=== PATIENT | male | born 1995 | race Caucasian/White ===

== ENCOUNTER 2018-08-23 17:20 | Emergency (ER) | payer MEDICAID ==
[~2018-08-23] VITALS: Ht 180.3 cm; Wt 72.7 kg
[~2018-08-23 17:20] MED LIST: DIPH-423 PO; NO HOME MEDS; PRED50TA PO; RANI-366 PO
[2018-08-23 17:36] VITALS: BP 101/44
== END 2018-08-23 20:41 | disposition home or self-care (01) ==
LOC: ER 17:21
DX: S80.12XA Contusion of left lower leg, initial encounter (principal); S80.11XA Contusion of right lower leg, initial encounter; F20.9 Schizophrenia, unspecified; F32.9 Major depressive disorder, single episode, unspecified; S40.219A Abrasion of unspecified shoulder, initial encounter; X58.XXXA Exposure to other specified factors, initial encounter; Y93.89 Activity, other specified; Y92.89 Other specified places as the place of occurrence of the external cause; Y99.8 Other external cause status
CPT/HCPCS: 99284

== ENCOUNTER 2018-10-08 22:28 | Emergency (ER) | payer MEDICAID | END 2018-10-08 23:25 | disposition left against medical advice (07) | LOC: ER 22:29 | DX: M79.673 Pain in unspecified foot (principal); Z53.21 Procedure and treatment not carried out due to patient leaving prior to being seen by health care provider; Z79.899 Other long term (current) drug therapy ==

== ENCOUNTER 2019-03-18 05:39 | Observation (INO) | payer MEDICAID, OTHER ==
[~2019-03-18] VITALS: Ht 180.3 cm; Wt 69.2 kg
[2019-03-18] MEDS ORDERED: normal saline 1000ML IV soln IVB STA (05:43)
[2019-03-18] MEDS ORDERED: tranexamic acid 100mg/ml inj. IV ONE (05:45)
[2019-03-18] MEDS ORDERED: epiNEPHrine 1 mg/ml inj SQ ONE (05:45)
[2019-03-18] MEDS ORDERED: methylPREDNISolone sod succ 125mg/2ml vial IV ONE (05:45)
[2019-03-18] MEDS ORDERED: famotidine/PF 10 mg/ml inj IV ONE (05:45)
[2019-03-18 06:34] LABS: BASOPHILS % (AUTO) 0.4 % (0-1); EOSINOPHILS # (AUTO) 0.1 X10'3 (0-0.9); EOSINOPHILS % (AUTO) 0.9 % (0-6); HEMATOCRIT 40.6 % (42.0-52.0); HEMOGLOBIN 14.3 g/dl (14.0-17.9); LYMPHOCYTES % (AUTO) 30.5 % (21-51); MEAN CORPUSCULAR HEMOGLOBIN 32.4 PG (27.0-31.0); MEAN CORPUSCULAR HGB CONC 35.1 g/dL (33.0-36.5); MEAN CORPUSCULAR VOLUME 92.2 FL (78-98); MEAN PLATELET VOLUME 8.6 FL (7.4-10.4); MONOCYTES # (AUTO) 0.6 X10'3 (0-0.9); MONOCYTES % (AUTO) 9.3 % (2-12); NEUTROPHILS # (AUTO) 3.9 X10'3 (1.8-7.7); NEUTROPHILS % (AUTO) 58.9 % (42-75); PLATELET COUNT 161 X10'3 (140-440); RED BLOOD COUNT 4.41 X10'6 (4.70-6.10); WHITE BLOOD COUNT 6.7 X10'3 (4.5-11.0)
[2019-03-18 06:43] LABS: PARTIAL THROMBOPLASTIN TIME 29 SECONDS (22-32)
[2019-03-18 06:46] LABS: ALANINE AMINOTRANSFERASE 24 U/L (12-78); ALBUMIN 4.5 G/DL (3.4-5.0); ALBUMIN/GLOBULIN RATIO 1.4 (1.1-1.5); ALKALINE PHOSPHATASE 60 IU/L (46-116); ANION GAP 9 (8-16); ASPARTATE AMINO TRANSFERASE 13 U/L (10-37); BILIRUBIN,TOTAL 0.6 MG/DL (0.1-1.0); BLOOD UREA NITROGEN 13 MG/DL (7-18); CALCIUM 9.3 MG/DL (8.5-10.1); CHLORIDE 106 MMOL/L (99-107); GLUCOSE 92 MG/DL (70-104); POTASSIUM 4.6 MMOL/L (3.5-5.1); SODIUM 142 MMOL/L (135-145); TOTAL CARBON DIOXIDE 26.8 MMOL/L (24-32); TOTAL PROTEIN 7.8 G/DL (6.4-8.2); eGFR > 90 ML/MIN
[2019-03-18] MEDS ORDERED: potassium Cl 20 mEq SR tablet PO PRN ×2 (08:40)
[2019-03-18] MEDS ORDERED: magnesium 4gm in 100ml NS 100 ML IV PRN (08:40)
[2019-03-18] MEDS ORDERED: mag hydrox/Alum hydrox/simeth 30ml oral suspension PO PRN (08:40)
[2019-03-18] MEDS ORDERED: ondansetron/PF 4mg/2ml inj IV PRN (08:40)
[2019-03-18] MEDS ORDERED: magnesium Cl slow-release 64mg tablet PO PRN (08:40)
[2019-03-18] MEDS ORDERED: magnesium hydroxide 30ml (MOM) UD suspension PO PRN (08:40)
[2019-03-18] MEDS ORDERED: magnesium 2GM in 50ml NS 50 ML IV PRN (08:40)
[2019-03-18] MEDS ORDERED: potassium CL 10mEq/100ml bag 100 ML IV PRN ×2 (08:40)
[2019-03-18] MEDS ORDERED: acetaminophen 325mg tablet PO PRN ×2 (08:40)
[2019-03-18] MEDS ORDERED: diphenhydrAMINE 25mg capsule PO PRN (10:55)
[2019-03-18] MEDS ORDERED: famotidine 20mg tablet PO SCH (10:55)
[2019-03-18] MEDS ORDERED: famotidine 10mg tablet PO SCH (11:13)
[2019-03-18] MEDS: predniSONE 20 mg tablet PO SCH (11:40)
[2019-03-18] MEDS: cetirizine 10mg tablet PO SCH (11:40)
[2019-03-18 15:03] VITALS: BP 111/58
[2019-03-18 18:00] VITALS: BP 110/58
--- NOTE | 2019-03-18 18:29 | NUR ---
PATIENT REFUSED NASAL SWAB
--- NOTE | 2019-03-18 18:30 | NUR ---
pt refusing MRSA nasal swab
--- NOTE | 2019-03-18 18:30 | NUR ---
Problems reprioritized. Patient report given, questions answered & plan of care reviewed with SONIA Trinidad.
[2019-03-18] MEDS: K and/or MAG REPLACEMENT MC SCH (18:54)
[2019-03-18] MEDS: famotidine 10mg tablet PO SCH (19:27)
[2019-03-18] MEDS: heparin, porcine 5000 units/ml vial SQ SCH (19:27)
[2019-03-19] VITALS: BP 115/48
[2019-03-19 05:18] LABS: ALBUMIN 3.6 G/DL (3.4-5.0); ANION GAP 6 (8-16); BLOOD UREA NITROGEN 15 MG/DL (7-18); BUN/CREATININE RATIO 16.5 (5.4-32.0); CALCIUM 8.8 MG/DL (8.5-10.1); CHLORIDE 108 MMOL/L (99-107); CREATININE 0.91 MG/DL (0.60-1.10); GLUCOSE 120 MG/DL (70-104); MAGNESIUM 1.9 MG/DL (1.5-2.4); SODIUM 142 MMOL/L (135-145); TOTAL CARBON DIOXIDE 27.7 MMOL/L (24-32); eGFR > 90 ML/MIN
[2019-03-19 06:08] LABS: BASOPHILS % (AUTO) 0.2 % (0-1); EOSINOPHILS % (AUTO) 0 % (0-6); HEMOGLOBIN 12.8 g/dl (14.0-17.9); LYMPHOCYTES # (AUTO) 1.8 X10'3 (1.1-4.8); LYMPHOCYTES % (AUTO) 11.6 % (21-51); MEAN CORPUSCULAR HEMOGLOBIN 31.4 PG (27.0-31.0); MEAN CORPUSCULAR HGB CONC 33.6 g/dL (33.0-36.5); MEAN CORPUSCULAR VOLUME 93.4 FL (78-98); MEAN PLATELET VOLUME 9.6 FL (7.4-10.4); MONOCYTES # (AUTO) 1.1 X10'3 (0-0.9); MONOCYTES % (AUTO) 6.9 % (2-12); NEUTROPHILS # (AUTO) 12.4 X10'3 (1.8-7.7); NEUTROPHILS % (AUTO) 81.3 % (42-75); PLATELET COUNT 164 X10'3 (140-440); RED BLOOD COUNT 4.07 X10'6 (4.70-6.10); RED CELL DISTRIBUTION WIDTH 13.1 % (11.5-14.5); WHITE BLOOD COUNT 15.3 X10'3 (4.5-11.0)
--- NOTE | 2019-03-19 06:31 | NUR ---
REPORT GIVEN TO SONIA CAMPOS
--- NOTE | 2019-03-19 06:47 | NUR ---
Patient in room [facility]. I have received report from Amos SCOTT and had the opportunity to ask questions and assume patient care.
[2019-03-19] MEDS: heparin, porcine 5000 units/ml vial SQ SCH (08:00)
[2019-03-19] MEDS: K and/or MAG REPLACEMENT MC SCH (08:00)
[2019-03-19] MEDS: cetirizine 10mg tablet PO SCH (08:10)
[2019-03-19] MEDS: predniSONE 20 mg tablet PO SCH (08:10)
[2019-03-19] MEDS: famotidine 10mg tablet PO SCH (08:13)
[2019-03-19 10:00] VITALS: BP 105/48
[2019-03-19 11:00] VITALS: BP 113/56
[2019-03-19] MEDS ORDERED: PRED20TA PO (12:27)
[2019-03-19] MEDS ORDERED: FAMO10TA PO (12:27)
[2019-03-19] MEDS ORDERED: CETI-102 PO (12:27)
[2019-03-19] MEDS ORDERED: DIPH-423 PO (12:27)
--- NOTE | 2019-03-19 15:48 | NUR ---
patient appears very confused and hallucinating at times. Guard present.Seen by Dr naaya, is for discharge. report called to senior living staff. DC via senior living van back to senior living escorted by yves. 1500hrs.
[2019-03-19] MEDS ORDERED: FLU VACC QS2019-20 36MOS UP/PF 60 MCG/0.5 ML SYRINGE IMVAC ONE (16:30)
[2019-03-19] MEDS ORDERED: pneumococcal 23-VAL P-sac vacc 25 mcg/0.5ml vial IMVAC ONE (16:30)
== END 2019-03-19 14:30 ==
LOC: EEVIPCON 05:39 → ER 05:39 → ED HOLD 08:48 → SUR 3N 14:53
PROVIDERS: ADMIT Hospitalist; ATTEND Hospitalist
DX: R22.0 Localized swelling, mass and lump, head (principal); F20.9 Schizophrenia, unspecified; F32.9 Major depressive disorder, single episode, unspecified; Z79.899 Other long term (current) drug therapy; Z88.8 Allergy status to other drugs, medicaments and biological substances
CPT/HCPCS: 36415; 71045; 80048; 80053; 83735; 85025; 85610; 85730; 86885; 86900; 86901; 93005; 96372; 96374; 96375; 99291; G0378; J0171; J1644; J2930; J3490; J7512